=== PATIENT | male | born 1935 | race Caucasian/White ===

== ENCOUNTER 2017-01-17 04:49 | Observation (INO) ==
[2017-01-17 05:33] LABS: Hematocrit 38.2 % (37.5-50.1); Hemoglobin 13.6 g/dL (12.9-16.9); Immature Granulocytes % 0.3 % (0-4); Immature Platelets 3.6 % (1.1-6.1); Lymphocytes # 0.4 K/mcL (0.6-4.6); Lymphocytes % 5.5 %; Mean Corpuscular HGB Conc 35.6 g/dL (31.6-35.5); Mean Corpuscular Hemoglobin 30.8 pg (28.0-33.3); Mean Corpuscular Volume 86.6 fL (83.0-100.0); Monocytes # 0.5 K/mcL (0.0-1.3); Monocytes % 6.4 %; Neutrophils # 6.5 K/mcL (1.6-8.9); Platelet Count 220 K/mcL (140-400); Red Blood Count 4.41 M/mcL (4.19-5.50); Red Cell Distribution Width 12.5 % (11.5-14.5); Segmented Neutrophils % 87.8 %
[2017-01-17 05:47] LABS: BUN/Creatinine Ratio 16 (6-26); Blood Urea Nitrogen 15 mg/dL (8-26); Calcium 8.8 mg/dL (8.6-10.8); Carbon Dioxide 23 mEq/L (19-29); Chloride 88 mEq/L (98-109); Glucose 125 mg/dL (70-99); Osmolality,Calculated 254 (280-300); Potassium 4.1 mEq/L (3.5-4.5); Sodium 121 mEq/L (136-145); eGFR For African Americans > 60 (> 60); eGFR For Non-African Americans > 60 (> 60)
[2017-01-17] MEDS ORDERED: Ipratropium/Albuterol Neb 3 ML IH ONE ×2 (05:56→06:10)
[2017-01-17] MEDS ORDERED: Levofloxacin 750 MG/150 ML 750 MG/150 ML BAG IVPB ONE (06:10)
[2017-01-17] MEDS ORDERED: methylPREDNISolone 125 MG/2 ML VIAL IVP ONE (06:10)
[2017-01-17] MEDS ORDERED: 0.9 % Sodium Chloride 1,000 ML IV ONE (06:10)
--- NOTE | 2017-01-17 06:14 | Emergency Department Note ---
Disposition Clinical Impression: Community acquired pneumonia Disposition: Still a Patient Condition: Fair Referrals: Kai Austin MD [Primary Care Provider] - Forms: ED Satisfaction Letter Time of Disposition: 07:12 [facility] - General Chief Complaint: ED Shortness of Breath/Dyspnea Stated Complaint: pneumonia feels worse Time Seen by Provider: 01/17/17 05:47 Source: patient Limitations: no limitations Nursing Notes Reviewed: Yes Vital Signs Reviewed: Yes - History of Present Illness 81-year-old male with pneumonia, diagnosed yesterday with chest x-ray, started on Levaquin yesterday, patient is up-to-date on his pneumonia vaccination, he has had congestion shortness of breath all night, showing to breathe, and catch his breath. Patient came in by private vehicle approximately 2 hours ago he had an episode of coughing and felt lightheaded like he was going to pass out. Patient's been very congested, is only on one dose of Levaquin, but was told to come back in if he did not improve. Patient is a patient of Dr. Austin. Patient denies chest pain, nausea vomiting diarrhea constipation hematuria or dysuria. Reports fever chills Pt Subjective Complaint: shortness of breath Onset (ago): day(s) Severity: moderate (3 days) Consistency/Duration: intermittent Improves with: oxygen Worsens with: coughing Associated symptoms: Reports: fever, cough, wheezing, sputum production Treatment prior to arrival: none Cough present: Yes Cough Description: Voluntary Cough Frequency: Continuous Sputum production: No Sputum Amount: Scant - Related Data Home oxygen amount: none Allergies Allergy/AdvReac Type Severity Reaction Status Date / Time No Known Allergies Allergy Verified 01/17/17 05:10 Review of Systems: All systems were reviewed with historian and negative except as per below, or as documented in the HPI. Constitutional: +for fever or chills ENT: Denies: nasal congestion, sore throat CV: Denies: chest pain, palpitations Resp positive for cough positive for congestion, positive for dyspnea, positive for wheeze, denies hemoptysis GI: Denies: abdominal pain, N/V/D/C Neuro: Denies: FORTE, weakness, sensory changes, gait difficulty Psych: Denies: anxiety, depression All systems ED: reviewed and negative except as stated. Past Medical History - Past Medical History Attestation: Yes The following information was validated with the patient. Source: patient Medical history: Reports: no medical history Psychiatric history: Reports: no psych history - Social History Smoking Status: Never smoker Smokeless Tobacco Status: No Alcohol use: Reports: none Drug use: Reports: none Physical Exam Constitutional: Elderly male in mild respiratory distress, hypoxic 88% on room air, Neck: normal inspection, neck is supple, trachea midline Resp: Crackles bilaterally left greater than right. CV: RRR, no m/g/r GI: normal inspection, Soft, NTND, BS present Neurologic: no focal deficits, alert and oriented 3 Psych: normal mood, normal affect Skin: No rashes, skin warm, dry, intact - General Limitations: no limitations General appearance: alert Course Course Narrative: 81-year-old male appears hypoxic, placed on 2 L, diagnosed with community acquired pneumonia on by mouth Levaquin, we will start IV antibiotics IV fluids DuoNeb treatments for hypoxia and wheezes, coarse breath sounds and crackles at the bases will repeat chest x-ray basic lab work, likely admission for failed outpatient treatment given age and comorbidities of hypertension hyperlipidemia. Vital Signs Temperature 97.8 F 01/17/17 04:52 Pulse Rate 83 01/17/17 04:52 Respiratory Rate 20 01/17/17 04:52 Blood Pressure 147/84 01/17/17 04:52 O2 Sat by Pulse Oximetry 90 L 01/17/17 04:52 Temperature 97.8 F 01/17/17 04:52 Pulse Rate 83 01/17/17 04:52 Respiratory Rate 16 01/17/17 06:19 Blood Pressure 147/84 01/17/17 04:52 O2 Sat by Pulse Oximetry 96 01/17/17 06:19 Oxygen Delivery Oxygen Delivery Room Air Shortness of Breath/Dyspnea - Lab Data Lab results reviewed: Yes I reviewed the patient's lab results. Result diagrams: 01/17/17 05:26 01/17/17 05:26 Lab Results 01/17/17 01/17/17 01/17/17 Range/Units 05:26 05:26 05:26 WBC 7.4 (4.3-11.1) K/mcL RBC 4.41 (4.19-5.50) M/mcL Hgb 13.6 (12.9-16.9) g/dL Hct 38.2 (37.5-50.1) % MCV 86.6 (83.0-100.0) fL MCH 30.8 (28.0-33.3) pg MCHC 35.6 H (31.6-35.5) g/dL RDW 12.5 (11.5-14.5) % Plt Count 220 (140-400) K/mcL MPV 9.0 L (9.4-12.4) fL Immature Gran % 0.3 (0-4) % Seg Neutrophils % 87.8 % Lymphocytes % 5.5 % Monocytes % 6.4 % Eosinophils % 0.0 % Basophils % 0.0 % Neutrophils # 6.5 (1.6-8.9) K/mcL Lymphocytes # 0.4 L (0.6-4.6) K/mcL Monocytes # 0.5 (0.0-1.3) K/mcL Eosinophils # 0.0 (0.0-0.6) K/mcL Basophils # 0.0 (0.0-0.2) K/mcL Immature Plt Fraction 3.6 (1.1-6.1) % Sodium 121 L (136-145) mEq/L Potassium 4.1 (3.5-4.5) mEq/L Chloride 88 L (98-109) mEq/L Carbon Dioxide 23 (19-29) mEq/L BUN 15 (8-26) mg/dL Creatinine 0.93 (0.72-1.25) mg/dL Est GFR ( Amer) > 60 (> 60) Est GFR (Non-Af Amer) > 60 (> 60) BUN/Creatinine Ratio 16 (6-26) Glucose 125 H (70-99) mg/dL Calculated Osmolality 254 L (280-300) Calcium 8.8 (8.6-10.8) mg/dL Troponin I 0.00 (0-0.03) ng/mL B-Natriuretic Peptide (0-100) pg/mL 01/17/17 Range/Units 05:26 WBC (4.3-11.1) K/mcL RBC (4.19-5.50) M/mcL Hgb (12.9-16.9) g/dL Hct (37.5-50.1) % MCV (83.0-100.0) fL MCH (28.0-33.3) pg MCHC (31.6-35.5) g/dL RDW (11.5-14.5) % Plt Count (140-400) K/mcL MPV (9.4-12.4) fL Immature Gran % (0-4) % Seg Neutrophils % % Lymphocytes % % Monocytes % % Eosinophils % % Basophils % % Neutrophils # (1.6-8.9) K/mcL Lymphocytes # (0.6-4.6) K/mcL Monocytes # (0.0-1.3) K/mcL Eosinophils # (0.0-0.6) K/mcL Basophils # (0.0-0.2) K/mcL Immature Plt Fraction (1.1-6.1) % Sodium (136-145) mEq/L Potassium (3.5-4.5) mEq/L Chloride (98-109) mEq/L Carbon Dioxide (19-29) mEq/L BUN (8-26) mg/dL Creatinine (0.72-1.25) mg/dL Est GFR ( Amer) (> 60) Est GFR (Non-Af Amer) (> 60) BUN/Creatinine Ratio (6-26) Glucose (70-99) mg/dL Calculated Osmolality (280-300) Calcium (8.6-10.8) mg/dL Troponin I (0-0.03) ng/mL B-Natriuretic Peptide 79 (0-100) pg/mL - Radiology Data Radiology results reviewed: Yes I reviewed the patient's radiology results. Chest X-Ray 01/17/17 05:11 IMPRESSION: Stable mild left basilar streaky opacity may relate to atelectasis or infiltrate. No new or worsening acute cardiopulmonary process. D/ / Charan Christian MD / Charan Christian MD Interpreting Provider: Charan Christian MD - EKG Data EKG attestation: Yes I reviewed and interpreted this EKG. EKG shows normal: Reports: sinus rhythm Rate: Reports: normal Rhythm: Reports: NSR (79 bpm normal QRS QTC and [place] intervals) [place]/QRS: Reports: normal Interpretation: Reports: no acute changes - Core Measures AMI Core Measures Followed: No Measure Exclusions: not indicated S.B.A.R. - S.B.A.R. Transition of Care: Hospitalists return page admission for pneumonia Situation: Demographics, MOA Background: Presenting Complaint, Relevant PMH, Meds, & Allergies Assessment: Vital Signs, Course and respsone to treatment, Exam Concerns, Patient/Family Expectation, Pertinant Lab Results, Outstanding Labs Recommendation: Barrier(s) to disposition, Recommendation based on pending studies, treatments, or consults Yun Report Given to: Sunil Malcolm Repor Time: 07:12 Attestation Statement - Attestation Attestation: I examined this patient and my medical decision-making was reviewed with the ED resident, Dr. Forman. I agree with the documented findings, disposition and treatment plan as described except to the extent set forth below. Patient 81-year-old male nonsmoker no pre-existing lung disease who presents to the emergency department with worsening shortness of breath after being diagnosed earlier today with a left lower lobe pneumonia. Patient hypoxic on room air placed on 2 L nasal cannula oxygen to improve sats. Patient appears tired but is no respiratory distress no tachypnea on arrival. Patient had no vomiting and has been tolerating his Levaquin which was prescribed earlier today he has had this one day's dosing of the antibiotic prior to presentation tonight to the ED. Patient did not have a flu swab. On exam patient has diminished breath sounds in the left lung base with no tachypnea or retractions. Heart is regular rate and rhythm. Remainder of exam is unremarkable. We will continue IV Levaquin at this point in time and obtain flu swab for further evaluation of source. Patient will be admitted for left lower lobe pneumonia and hypoxia. He remained stable on nasal cannula oxygen at this time. Case will be discussed with the hospitalist.
--- NOTE | 2017-01-17 08:30 | Emergency Department Note ---
Disposition Clinical Impression: Community acquired pneumonia, Influenza A Disposition: Admitted As Inpatient Condition: Fair Referrals: Kai Austin MD [Primary Care Provider] - Forms: ED Satisfaction Letter Time of Disposition: 08:29 General Adult HPI - General Chief complaint: ED Shortness of Breath/Dyspnea Stated complaint: pneumonia feels worse Time Seen by Provider: 01/17/17 05:47 Source: patient Limitations: no limitations - History of Present Illness Pain Scale: 0 - Related Data Home Medications Medication Instructions Recorded Confirmed Alprazolam [Xanax 0.25 MG Tablet] 0.25 mg PO HS 01/17/17 01/17/17 Amlodipine [Norvasc] 5 mg PO DAILY 01/17/17 01/17/17 Levofloxacin [Levaquin] 750 mg PO DAILY 01/17/17 01/17/17 Losartan Potassium [Cozaar] 100 mg PO DAILY 01/17/17 01/17/17 Omeprazole 40 mg PO DAILY 01/17/17 01/17/17 PredniSONE [Deltasone] 20 mg PO AD 01/17/17 01/17/17 Allergies Allergy/AdvReac Type Severity Reaction Status Date / Time tamsulosin [From Flomax] AdvReac Dizziness Verified 01/17/17 07:18 Past Medical History - Past Medical History Medical history: Reports: no medical history Psychiatric history: Reports: no psych history - Social History Smoking Status: Never smoker Smokeless Tobacco Status: No Alcohol use: Reports: none Drug use: Reports: none Physical Exam - General Limitations: no limitations General appearance: alert Course - Reevaluation(s) Reevaluation #1: 81-year-old [facility] plan was for admission with pneumonia. The flu swab did come back positive for flu a period will give him Tamiflu. She will be admitted. Time: 08:29 - Consultations Consultation #1: Discussed with , admit. Time: 08:29 Vital Signs Temperature 97.8 F 01/17/17 04:52 Pulse Rate 83 01/17/17 04:52 Respiratory Rate 20 01/17/17 04:52 Blood Pressure 147/84 01/17/17 04:52 O2 Sat by Pulse Oximetry 90 L 01/17/17 04:52 Temperature 97.8 F 01/17/17 04:52 Pulse Rate 83 01/17/17 04:52 Respiratory Rate 16 01/17/17 06:19 Blood Pressure 147/84 01/17/17 04:52 O2 Sat by Pulse Oximetry 96 01/17/17 06:19 Oxygen Delivery Oxygen Delivery Room Air Medical Decision Making - Lab Data Result diagrams: 01/17/17 05:26 01/17/17 05:26 Lab Results 01/17/17 01/17/17 01/17/17 Range/Units 05:26 05:26 05:26 WBC 7.4 (4.3-11.1) K/mcL RBC 4.41 (4.19-5.50) M/mcL Hgb 13.6 (12.9-16.9) g/dL Hct 38.2 (37.5-50.1) % MCV 86.6 (83.0-100.0) fL MCH 30.8 (28.0-33.3) pg MCHC 35.6 H (31.6-35.5) g/dL RDW 12.5 (11.5-14.5) % Plt Count 220 (140-400) K/mcL MPV 9.0 L (9.4-12.4) fL Immature Gran % 0.3 (0-4) % Seg Neutrophils % 87.8 % Lymphocytes % 5.5 % Monocytes % 6.4 % Eosinophils % 0.0 % Basophils % 0.0 % Neutrophils # 6.5 (1.6-8.9) K/mcL Lymphocytes # 0.4 L (0.6-4.6) K/mcL Monocytes # 0.5 (0.0-1.3) K/mcL Eosinophils # 0.0 (0.0-0.6) K/mcL Basophils # 0.0 (0.0-0.2) K/mcL Immature Plt Fraction 3.6 (1.1-6.1) % Sodium 121 L (136-145) mEq/L Potassium 4.1 (3.5-4.5) mEq/L Chloride 88 L (98-109) mEq/L Carbon Dioxide 23 (19-29) mEq/L BUN 15 (8-26) mg/dL Creatinine 0.93 (0.72-1.25) mg/dL Est GFR ( Amer) > 60 (> 60) Est GFR (Non-Af Amer) > 60 (> 60) BUN/Creatinine Ratio 16 (6-26) Glucose 125 H (70-99) mg/dL Calculated Osmolality 254 L (280-300) Calcium 8.8 (8.6-10.8) mg/dL Troponin I 0.00 (0-0.03) ng/mL B-Natriuretic Peptide (0-100) pg/mL 01/17/17 Range/Units 05:26 WBC (4.3-11.1) K/mcL RBC (4.19-5.50) M/mcL Hgb (12.9-16.9) g/dL Hct (37.5-50.1) % MCV (83.0-100.0) fL MCH (28.0-33.3) pg MCHC (31.6-35.5) g/dL RDW (11.5-14.5) % Plt Count (140-400) K/mcL MPV (9.4-12.4) fL Immature Gran % (0-4) % Seg Neutrophils % % Lymphocytes % % Monocytes % % Eosinophils % % Basophils % % Neutrophils # (1.6-8.9) K/mcL Lymphocytes # (0.6-4.6) K/mcL Monocytes # (0.0-1.3) K/mcL Eosinophils # (0.0-0.6) K/mcL Basophils # (0.0-0.2) K/mcL Immature Plt Fraction (1.1-6.1) % Sodium (136-145) mEq/L Potassium (3.5-4.5) mEq/L Chloride (98-109) mEq/L Carbon Dioxide (19-29) mEq/L BUN (8-26) mg/dL Creatinine (0.72-1.25) mg/dL Est GFR ( Amer) (> 60) Est GFR (Non-Af Amer) (> 60) BUN/Creatinine Ratio (6-26) Glucose (70-99) mg/dL Calculated Osmolality (280-300) Calcium (8.6-10.8) mg/dL Troponin I (0-0.03) ng/mL B-Natriuretic Peptide 79 (0-100) pg/mL
[2017-01-17] MEDS ORDERED: Ondansetron 4 MG/2 ML VIAL IVP ONE (08:48)
[2017-01-17] MEDS ORDERED: ALPRAZolam 0.5 MG TABLET PO ONE (08:48)
--- NOTE | 2017-01-17 10:21 | Internal Med History&Physical ---
Date of Encounter: 01/17/17 Time of Encounter: 10:17 Assessment and Plan (1) Essential hypertension Current visit: Yes Status: Acute Continue on amlodipine. Monitor vital signs. (2) Anxiety Current visit: Yes Status: Acute Continue with home dose of Xanax. (3) DVT prophylaxis Current visit: Yes Status: Acute Encourage ambulation. No pharmacological prophylaxis needed as the patient is fully ambulatory. (4) Community acquired pneumonia Current visit: Yes Status: Acute Possibly bacterial versus viral. Given the patient has had symptoms for a week and have not improved in spite of treatment with a Z-Luiz and I will broaden the antibiotic coverage to Cover gram-negative rods, Pseudomonas and atypicals with Levaquin and Zosyn. We will use inhaled bronchodilators as needed for wheezing or shortness of breath. Oxygen by nasal cannula to maintain saturation above 92%. Check ambulatory oxygen saturation for home oxygen needs predischarge. There is no history of COPD and no significant wheezing and therefore I will stop the prednisone which was started outpatient yesterday. Given the viral infection prednisone would be more detrimental. (5) Influenza A Current visit: Yes Status: Acute We will treat a patient with Tamiflu. Droplet precautions. Internal Medicine - H&P: HPI Chief complaint: Shortness of breath Admitted From: Emergency Dept Plans for Post Hospital Care: Home History of present illness: Mr. Rodriguez is a 81 year old male with past medical history significant for hypertension who presented to the hospital with worsening shortness of breath. He developed a cough 1 week ago and presented to his family doctor and was prescribed a course of azithromycin. His symptoms did not improve and over the last 2 days got worse and developed fever of 101 at home, worsening shortness of breath associated with nonproductive cough nausea vomiting and abdominal pain. Denies associated chest pain. Denies any aggravating or alleviating factors for shortness of breath. He reports that his had similar symptoms over the last few days. He went back to his PCP yesterday and he had a chest x- ray done which reportedly showed evidence of a pneumonia. He was switched to a different antibiotic and sent home, however today his shortness of breath has been severe and he presented to the emergency department. Review of systems: Pertinent positives as above, additionally positive for sinus congestion, positive for impaired hearing, positive for seasonal allergies and anxiety managed with benzodiazepines. The remainder of the temporary review of systems was negative. Past medical history pertinent for hypertension and GERD Past surgical history bilateral hip replacement Family history pertinent for leukemia and the patient's mother. Negative for premature coronary artery disease in both parents. Social history patient denies tobacco alcohol and drug use. He has an active lifestyle. Past Med Surg Social Fam HX - Past Medical History Medical history: no medical history Psychiatric history: no psych history - Social History Smoking Status: Never smoker Smokeless Tobacco Status: No Alcohol use: none Drug use: none Internal Medicine - H&P: Meds Alprazolam [Xanax 0.25 MG Tablet] 0.25 mg PO HS 01/17/17 [History] Amlodipine [Norvasc] 5 mg PO DAILY 01/17/17 [History] Levofloxacin [Levaquin] 750 mg PO DAILY 01/17/17 [History] Losartan Potassium [Cozaar] 100 mg PO DAILY 01/17/17 [History] Omeprazole 40 mg PO DAILY 01/17/17 [History] PredniSONE [Deltasone] 20 mg PO AD 01/17/17 [History] Allergies tamsulosin [From Flomax] Adverse Reaction (Verified 01/17/17 07:18) Dizziness All Systems PM: A 10-system review of systems was performed and is negative for pertinent findings except as documented above in the HPI. - Constitutional Vitals: Temp Pulse Resp BP Pulse Ox 97.8 F 85 12 147/80 92 L 01/17/17 04:52 01/17/17 10:06 01/17/17 10:06 01/17/17 10:06 01/17/17 10:06 General appearance: Present: A&O X 3 - Eye Eye exam: Present: PERRL, conjuntiva pink, sclera anicteric Pupils: Present: PERRL - ENT Additional comments: Mild pharyngeal erythema, no exudate. - Respiratory Respiratory exam: Present: rales, rhonchi. Absent: accessory muscle use, wheezes Additional comments: Rales and rhonchi in the left lower lung field. - Cardiovascular Cardiovascular exam: Present: RRR, +S1, +S2. Absent: diastolic murmur, gallop, rubs, systolic murmur - GI/Abdominal GI/Abdominal exam: Present: normal bowel sounds, soft, no peritoneal signs. Absent: distended, tenderness - Extremities Exam Extremities exam: Present: warm, radial pulses palpable and symetrical. Absent : calf tenderness, cyanotic, pedal edema - Neurological Exam Neurological exam: Present: CN II-XII intact, oriented X3, no focal deficits. Absent: pronater drift, facial droop, speech deficit - Skin Skin exam: Present: dry, intact Internal Med - H&P Results - Labs CBC & Chem 7: 01/17/17 05:26 01/17/17 05:26 Labs: Short CBC 01/17/17 Range/Units 05:26 WBC 7.4 (4.3-11.1) K/mcL Hgb 13.6 (12.9-16.9) g/dL Hct 38.2 (37.5-50.1) % Plt Count 220 (140-400) K/mcL Neutrophils # 6.5 (1.6-8.9) K/mcL BMP 01/17/17 05:26 Sodium 121 L Potassium 4.1 Chloride 88 L Carbon Dioxide 23 BUN 15 Creatinine 0.93 Glucose 125 H Calcium 8.8 Cardiac Enzymes 01/17/17 Range/Units 05:26 Troponin I 0.00 (0-0.03) ng/mL - EKG Data -: EKG Interpreted by Myself EKG shows normal: sinus rhythm (79 bpm normal axis and intervals, no ST or T- wave changes), axis, intervals, QRS complexes, ST-T waves - Impressions ITS Impressions Chest X-Ray 01/17/17 05:11 IMPRESSION: Stable mild left basilar streaky opacity may relate to atelectasis or infiltrate. No new or worsening acute cardiopulmonary process. D/ / 01/17/2017 07:30:35 Charan Christian MD / [place] Interpreting Provider: Charan Christian MD
[2017-01-17] MEDS ORDERED: Acetaminophen 325 MG TABLET PO PRN (11:16)
[2017-01-17] MEDS ORDERED: Ondansetron 4 MG/2 ML VIAL IVP PRN (11:16)
[2017-01-17] MEDS ORDERED: 0.9 % Sodium Chloride 1,000 ML IVC SCH (11:30)
[2017-01-17] MEDS: amLODIPine 5 MG TABLET PO SCH (12:42)
[2017-01-17] MEDS: Piperacillin/Tazobactam 3.375 GM in D5% in Water (Mini-Bag+) 100 ML IVPB SCH (15:40)
[2017-01-17] MEDS: Ipratropium/Albuterol Neb 3 ML IH SCH ×2 (16:54→22:44)
[2017-01-17] MEDS: ALPRAZolam 0.25 MG TABLET PO SCH (21:55)
[2017-01-18] MEDS: Piperacillin/Tazobactam 3.375 GM in D5% in Water (Mini-Bag+) 100 ML IVPB SCH ×4 (02:17→23:34)
[2017-01-18] MEDS: Ipratropium/Albuterol Neb 3 ML IH SCH ×4 (03:47→21:47)
--- NOTE | 2017-01-18 03:59 | Electrocardiograph Report ---
[place] [facility] Test Date: 2017-01-17 Pat Name: Brien Rodriguez Department: 102 Room: 3A41 Gender: M Cardiovascular Physician Assistant: : [id number] Requested By: Nanci Germain Order Number: [id number] Reading MD: John Conn MD Measurements Intervals [place] Rate: 79 P: ID: 0 QRS: 20 QRSD: 85 T: 51 QT: 367 QTc: 401 Interpretive Statements SUPRAVENTRICULAR RHYTHM Electronically Signed On 01-18-2017 3:57:33 EST by John Conn MD
[2017-01-18 05:19] LABS: Basophils % 0.1 %; Hematocrit 37.4 % (37.5-50.1); Hemoglobin 13.3 g/dL (12.9-16.9); Immature Granulocytes % 0.7 % (0-4); Lymphocytes # 0.7 K/mcL (0.6-4.6); Lymphocytes % 10.5 %; Mean Corpuscular HGB Conc 35.6 g/dL (31.6-35.5); Mean Corpuscular Hemoglobin 31.2 pg (28.0-33.3); Mean Corpuscular Volume 87.8 fL (83.0-100.0); Mean Platelet Volume 9.5 fL (9.4-12.4); Monocytes # 0.9 K/mcL (0.0-1.3); Monocytes % 12.9 %; Neutrophils # 5.2 K/mcL (1.6-8.9); Platelet Count 218 K/mcL (140-400); Red Blood Count 4.26 M/mcL (4.19-5.50); Red Cell Distribution Width 13.1 % (11.5-14.5); Segmented Neutrophils % 75.8 %
[2017-01-18 05:57] LABS: BUN/Creatinine Ratio 16 (6-26); Blood Urea Nitrogen 17 mg/dL (8-26); Calcium 8.7 mg/dL (8.6-10.8); Carbon Dioxide 23 mEq/L (19-29); Chloride 99 mEq/L (98-109); Glucose 92 mg/dL (70-99); Osmolality,Calculated 275 (280-300); Potassium 4.5 mEq/L (3.5-4.5); eGFR For African Americans > 60 (> 60); eGFR For Non-African Americans > 60 (> 60)
[2017-01-18 06:05] LABS: Sodium 132 mEq/L (136-145)
[2017-01-18] MEDS: Levofloxacin 750 MG/150 ML 750 MG/150 ML BAG IVPB SCH (07:43)
[2017-01-18] MEDS: amLODIPine 5 MG TABLET PO SCH (07:44)
--- NOTE | 2017-01-18 10:10 | Internal Med Progress Note ---
Date of Encounter: 01/18/17 Time of Encounter: 09:00 - Assessment and plan (1) Essential hypertension Current Visit: Yes Status: Acute Assessment and plan: Continue oral home medication regimen. (2) Anxiety Current Visit: Yes Status: Acute Assessment and plan: Well-controlled with Xanax. We will continue this. (3) DVT prophylaxis Current Visit: Yes Status: Acute Assessment and plan: Encourage ambulation. (4) Community acquired pneumonia Current Visit: Yes Status: Acute Assessment and plan: Patient failed outpatient treatment with Z-Luiz. I will continue with Zosyn and Levaquin and follow up his blood cultures and adjust antibiotic therapy accordingly. Will obtain sputum culture if available. If the blood cultures remained sterile I will de-escalate therapy tomorrow. Continue supplemental oxygen by nasal cannula. She has fine wheezes bilaterally but he reports that his shortness of breath has improved. I suspect some mild bronchospastic reaction. The patient does not have a history of COPD or asthma. We will treat this with inhaled bronchodilators and I will hold off on steroids due to the presence of viral infection. (5) Influenza A Current Visit: Yes Status: Acute Assessment and plan: I will continue Tamiflu. Droplet precautions. He has had influenza vaccination this season. (6) Hypoxemia Current Visit: Yes Status: Acute Assessment and plan: He was hypoxic to 85% on presentation her verbal ED physician report. Documented oxygen saturation was as low as 90% with supplemental oxygen at 2 L/ m by nasal cannula. We will continue oxygen supplementation. Titrate down to maintain oxygen saturation above 92%. We will check ambulatory oxygen saturation for home oxygen qualification. - Subjective Interval history: Patient says that his shortness of breath has improved from yesterday. He continues to have mild nonproductive cough associated with it, denies chest pain , fevers chills. His nausea and vomiting has resolved. Denies joint aches and pains. - Constitutional Vitals: Temp Pulse Resp BP Pulse Ox 97.6 F 82 18 155/84 96 01/18/17 07:02 01/18/17 07:02 01/18/17 07:02 01/18/17 07:02 01/18/17 07:02 General appearance: Present: A&O X 3 - Respiratory Respiratory exam: Present: wheezes. Absent: accessory muscle use, rales, rhonchi Additional comments: Fine bilateral end expiratory wheezes. Crackles at the left base. - Cardiovascular Cardiovascular exam: Present: RRR, +S1, +S2. Absent: diastolic murmur, gallop, rubs, systolic murmur - GI/Abdominal GI/Abdominal exam: Present: normal bowel sounds, soft, no peritoneal signs. Absent: distended, tenderness - Skin Skin exam: Present: dry, intact Internal Medicine: Result - Labs CBC & Chem 7: 01/18/17 04:27 01/18/17 04:27 Labs: Short CBC 01/18/17 Range/Units 04:27 WBC 6.9 (4.3-11.1) K/mcL Hgb 13.3 (12.9-16.9) g/dL Hct 37.4 L (37.5-50.1) % Plt Count 218 (140-400) K/mcL Neutrophils # 5.2 (1.6-8.9) K/mcL BMP 01/18/17 04:27 Sodium 132 L D Potassium 4.5 Chloride 99 Carbon Dioxide 23 BUN 17 Creatinine 1.04 Glucose 92 Calcium 8.7 Consult Discharge Plan - Plan Referrals: Kai Austin MD [Primary Care Provider] - 02/01/17 8:20 am
[2017-01-18] MEDS: ALPRAZolam 0.25 MG TABLET PO SCH (21:09)
[2017-01-19] MEDS: Ipratropium/Albuterol Neb 3 ML IH SCH (03:50)
[2017-01-19 04:51] LABS: Basophils % 0.2 %; Eosinophils % 0.2 %; Hematocrit 37.8 % (37.5-50.1); Hemoglobin 13.4 g/dL (12.9-16.9); Immature Granulocytes % 0.9 % (0-4); Lymphocytes # 1.1 K/mcL (0.6-4.6); Lymphocytes % 18.9 %; Mean Corpuscular HGB Conc 35.4 g/dL (31.6-35.5); Mean Corpuscular Hemoglobin 31.7 pg (28.0-33.3); Mean Corpuscular Volume 89.4 fL (83.0-100.0); Mean Platelet Volume 9.5 fL (9.4-12.4); Monocytes # 0.7 K/mcL (0.0-1.3); Monocytes % 11.4 %; Platelet Count 199 K/mcL (140-400); Red Blood Count 4.23 M/mcL (4.19-5.50); Red Cell Distribution Width 13.3 % (11.5-14.5); Segmented Neutrophils % 68.4 %
[2017-01-19 05:07] LABS: BUN/Creatinine Ratio 14 (6-26); Blood Urea Nitrogen 15 mg/dL (8-26); Calcium 8.4 mg/dL (8.6-10.8); Carbon Dioxide 25 mEq/L (19-29); Chloride 98 mEq/L (98-109); Glucose 93 mg/dL (70-99); Magnesium 1.7 mg/dL (1.6-2.6); Osmolality,Calculated 273 (280-300); Potassium 4.3 mEq/L (3.5-4.5); Sodium 131 mEq/L (136-145); eGFR For African Americans > 60 (> 60); eGFR For Non-African Americans > 60 (> 60)
[2017-01-19 08:35] VITALS: BP 136/84
[2017-01-19] MEDS: Levofloxacin 750 MG/150 ML 750 MG/150 ML BAG IVPB SCH (08:57)
[2017-01-19] MEDS: amLODIPine 5 MG TABLET PO SCH (09:01)
--- NOTE | 2017-01-19 09:51 | Discharge Summary ---
Date of Encounter: 01/19/17 Time of Encounter: 09:49 - Discharge Diagnosis (1) Essential hypertension Priority: Secondary Status: Acute (2) Anxiety Priority: Secondary Status: Acute (3) Community acquired pneumonia Priority: Primary Status: Acute (4) Influenza A Priority: Secondary Status: Acute (5) Hypoxemia Priority: Secondary Status: Acute - Discharge Medications Prescriptions: Ipratropium/Albuterol Neb [Duoneb] 3 ml IH [id number] #60 inhsol Levofloxacin [Levaquin] 750 mg PO DAILY #4 tablet Oseltamivir [Tamiflu] 75 mg PO BID #6 capsule Home Medications: Alprazolam [Xanax 0.25 MG Tablet] 0.25 mg PO HS 01/17/17 [History] Amlodipine [Norvasc] 5 mg PO DAILY 01/17/17 [History] Losartan Potassium [Cozaar] 100 mg PO DAILY 01/17/17 [History] Omeprazole 40 mg PO DAILY 01/17/17 [History] Ipratropium/Albuterol Neb [Duoneb] 3 ml IH [id number] #60 inhsol 01/19/17 [Rx] Levofloxacin [Levaquin] 750 mg PO DAILY #4 tablet 01/19/17 [Rx] Oseltamivir [Tamiflu] 75 mg PO BID #6 capsule 01/19/17 [Rx] Allergies/Adverse Reactions: Allergies tamsulosin [From Flomax] Adverse Reaction (Verified 01/17/17 07:18) Dizziness Date of admission: 01/17/17 10:33 Primary care physician: Kai Austin MD - Patient Status Disposition: Home, Self-Care Condition: Fair Functional capacity at discharge: independent ambulation Overall status at discharge: patient is progressing back to baseline - Discharge Instructions Follow Up With: Kai Austin MD [Primary Care Provider] - 02/01/17 8:20 am Radha Schwartz MD [Partnered Physician] - - Diet and Activity Activity: increase activity as tolerated Diet: low fat, low cholesterol, low salt diet Interval History: Patient not SOB today, cough improved, ambulated in hallway for 6 minutes, O2 sat stayed at 92% and above on room air the entire time. Hospital course: Mr. Rodriguez is a 81 year old male w/ PMH of HTN who came to the hospital for evaluation of dispnea and productive cough. He had completed an outpatient course of antibiotics with no improvement. He was diagnosed with community acquired pneumonia and Influenza A infection. He was admitted and treated with iv antibiotics (Zosyn and Levaquin) and oral Tamiflu. Of note, he does not have a diagnosis of COPD. Prednisone was stopped due to concern for worsening the viral infection. He improved with treatment. On day 2 lung exam revealed expiratory wheezing for which he was treated with inhaled bronchodilators and this will be prescribed on discharge. He will also continue Levaquin and Tamiflu. He will be referred to outpatient pulmonology for PFT. He has had pneumovax and this season's influenza vaccine. He had a 6 minute walk test during which his O2 saturation remained above 92%. - Time Spent with Patient Total time spent providing and/or coordinating discharge services: Less than 30 minutes - Constitutional Vitals: Temp Pulse Resp BP Pulse Ox 97.6 F 86 16 136/84 93 L 01/19/17 08:34 01/19/17 08:34 01/19/17 08:34 01/19/17 08:34 01/19/17 08:34 General appearance: Present: A&O X 3 - Respiratory Respiratory exam: Present: CTAB. Absent: accessory muscle use, rales, rhonchi, wheezes - Cardiovascular Cardiovascular exam: Present: RRR, +S1, +S2. Absent: diastolic murmur, gallop, rubs, systolic murmur
== END 2017-01-19 10:26 | disposition home or self-care (01) ==
LOC: EMEROO 04:49 → 2ANU 04:49 → SUATTDRO 11:16 → 3ANU 12:39
PROVIDERS: ADMIT Internal Medicine; ATTEND Internal Medicine

== ENCOUNTER 2020-09-18 09:10 | Inpatient (IN) ==
[~2020-09-18 09:10] MED LIST: Acetaminophen IV 1,000 MG/100 ML INFUS..BTL IVPB ONE; Famotidine 20 MG/2 ML VIAL IVP ONE
[2020-09-18] MEDS ORDERED: *HR* HYDROmorphone (PF) 1 MG/ML SYRINGE IVP PRN (09:24)
[2020-09-18] MEDS ORDERED: Famotidine 20 MG/2 ML VIAL IVP ONE (09:24)
[2020-09-18] MEDS ORDERED: *HR* OxyCODONE Immed Rel 5 MG TABLET PO PRN ×2 (09:24→13:50)
[2020-09-18] MEDS ORDERED: *HR* Labetalol 20 MG/4 ML SYRINGE IVP PRN (09:24)
[2020-09-18] MEDS ORDERED: Acetaminophen IV 1,000 MG/100 ML INFUS..BTL IVPB ONE (09:24)
[2020-09-18] MEDS ORDERED: CeFAZolin Syr 2,000MG/20 ML 2,000 MG/20 ML SYRINGE IVPB ONE (09:33)
[2020-09-18] MEDS ORDERED: Ringers Solution, Lactated 1,000 ML IVC SCH ×2 (09:45→13:50)
[2020-09-18] MEDS ORDERED: Ropivacaine/PF 0.5% 30 ML VIAL ONE (09:57)
[2020-09-18] MEDS ORDERED: ROPIVACAINE/PF/NS 0.25% 1 EACH SYRINGE INTRAART ONE (09:57)
[2020-09-18] MEDS ORDERED: *HR* FentaNYL (PF) 100 MCG/2 ML VIAL ONE (09:59)
[2020-09-18] MEDS ORDERED: *HR* Midazolam HCl 2 MG/2 ML VIAL ONE (10:36)
[2020-09-18] MEDS ORDERED: Ethanol\\Acetic Acid\\Na Ace\\Ben 1,000 ML IRRIG.SOLN IR ONE (11:11)
[2020-09-18] MEDS ORDERED: Vancomycin 1,000 MG VIAL ONE ×2 (11:11→12:28)
[2020-09-18] MEDS ORDERED: *HR* Propofol 200 MG/20 ML VIAL IVP ONE (11:13)
[2020-09-18] MEDS ORDERED: Lidocaine -MPF 4% 5 ML AMPUL ONE ×2 (11:13→11:21)
[2020-09-18] MEDS ORDERED: Ondansetron 4 MG/2 ML VIAL ONE (11:13)
[2020-09-18] MEDS ORDERED: Lidocaine -MPF 2% 2 ML VIAL ONE (11:13)
[2020-09-18] MEDS ORDERED: Dexamethasone 4 MG/ML VIAL ONE (11:13)
[2020-09-18] MEDS ORDERED: *HR* Succinylcholine 200 MG/10 ML VIAL IVP ONE (11:13)
[2020-09-18] MEDS ORDERED: Povidone-Iodine 45 ML, Sodium Chloride IRRigation 1,000 ML IR ONE (11:15)
[2020-09-18] MEDS ORDERED: *HR* PHENYLEPHRINE 1,000 MCG/10 ML SYRINGE IVP ONE (11:25)
[2020-09-18] MEDS ORDERED: Naloxone 0.4 MG/ML INJ IVP PRN (13:50)
[2020-09-18] MEDS ORDERED: Dextrose Gel 15 GM/37.5 ML TUBE PO PRN ×2 (13:50)
[2020-09-18] MEDS ORDERED: MOM Conc 10 ML UD.LIQ PO PRN (13:50)
[2020-09-18] MEDS ORDERED: D5% in Water 1,000 ML IVC PRN (13:50)
[2020-09-18] MEDS ORDERED: Ondansetron 4 MG/2 ML VIAL IVP PRN (13:50)
[2020-09-18] MEDS ORDERED: Sennosides 8.6 MG TABLET PO PRN (13:50)
[2020-09-18] MEDS ORDERED: *HR* Dextrose 50 % in Water (Vial) 50 ML VIAL IVP PRN (13:50)
[2020-09-18] MEDS: *HR* OxyCODONE/APAP 5/325 TABLET PO PRN (14:30)
[2020-09-18] MEDS: Insulin LISPRO 300 UNITS/3 ML VIAL SQ SCH ×2 (14:45→17:28)
[2020-09-18 15:23] LABS: Hematocrit 37.9 % (37.5-50.1); Hemoglobin 12.7 g/dL (12.9-16.9)
[2020-09-18] MEDS: CeFAZolin 2 GM/120 ML BAG IVPB SCH ×2 (17:43→23:12)
[2020-09-18] MEDS: *HR* Enoxaparin 30 MG/0.3 ML SYRINGE SQ SCH (17:44)
[2020-09-18] MEDS ORDERED: *HR* Enoxaparin 30 MG/0.3 ML SYRINGE SQ SCH ×2 (18:00)
[2020-09-18] MEDS ORDERED: CeFAZolin 2 GM/120 ML BAG IVPB SCH (20:00)
[2020-09-18] MEDS ORDERED: ALPRAZolam 0.25 MG TABLET PO SCH (21:00)
[2020-09-18] MEDS ORDERED: Insulin LISPRO 300 UNITS/3 ML VIAL SQ SCH (21:00)
[2020-09-19 01:19] LABS: Hematocrit 35.5 % (37.5-50.1); Hemoglobin 12.2 g/dL (12.9-16.9)
[2020-09-19 01:21] LABS: BUN/Creatinine Ratio 16 (6-26); Blood Urea Nitrogen 16 mg/dL (8-23); Calcium 8.9 mg/dL (8.6-10.3); Carbon Dioxide 24 mEq/L (23-29); Chloride 98 mEq/L (98-107); Glucose 155 mg/dL (70-105); Osmolality,Calculated 276 (280-300); Potassium 4.4 mEq/L (3.5-5.1); Sodium 131 mEq/L (136-145); eGFR For African Americans > 60 (> 60); eGFR For Non-African Americans > 60 (> 60)
[2020-09-19] MEDS: *HR* Enoxaparin 30 MG/0.3 ML SYRINGE SQ SCH (05:24)
[2020-09-19] MEDS ORDERED: ALPRAZolam 0.25 MG TABLET PO ONE (07:20)
[2020-09-19] MEDS: Insulin LISPRO 300 UNITS/3 ML VIAL SQ SCH (07:27)
[2020-09-19 07:31] VITALS: BP 143/70
[2020-09-19] MEDS ORDERED: amLODIPine 5 MG TABLET PO SCH (09:00)
[2020-09-19] MEDS: *HR* OxyCODONE/APAP 5/325 TABLET PO PRN (10:06)
== END 2020-09-19 10:09 | disposition home health service (06) | DRG 483 ==
LOC: SAMDAY 09:10 → 3NENU 09:36
PROVIDERS: ADMIT Orthopaedic Surgery; ATTEND Orthopaedic Surgery